=== PATIENT | female | born 1930 | race Caucasian/White ===

== ENCOUNTER 2016-10-09 09:12 | Emergency (ER) | payer OTHER ==
[~2016-10-09] VITALS: Ht 160 cm; Wt 54.4 kg
[2016-10-09 09:19] VITALS: BP_SYST 102; BP_SYST 110; BP_DIAS 44; BP_DIAS 45
[2016-10-09] MEDS ORDERED: QUETIAPINE FUMA50 MG ORAL (09:56)
[2016-10-09] MEDS ORDERED: TEMAZEPAM15 MG ORAL (09:56)
[2016-10-09] MEDS ORDERED: DONEPEZIL HCL5 M2 ORAL (09:56)
[2016-10-09] MEDS ORDERED: OMEPRAZOLE20 M2 ORAL (09:56)
[2016-10-09] MEDS ORDERED: LORAZEPAM1 MG ORAL (09:56)
[2016-10-09] MEDS ORDERED: ATORVASTATIN CA80 MG ORAL (09:56)
[2016-10-09] MEDS ORDERED: FERROUS SULFAT325 MG ORAL (09:56)
[2016-10-09] MEDS ORDERED: ACETAMINOP160 MG/54 ORAL (09:56)
[2016-10-09] MEDS ORDERED: CITALOPRAM HBR20 M1 ORAL (09:56)
[2016-10-09] MEDS ORDERED: ASPIR-LOW81 MG ORAL (09:56)
[2016-10-09] MEDS ORDERED: MILK OF MA400 MG/51 ORAL (09:56)
[2016-10-09 10:38] LABS: EOSINOPHILS % (AUTO) 2.2 % (0.0-3.0); LYMPHOCYTES % (AUTO) 24.9 % (20.0-45.0); MEAN CORPUSCULAR HEMOGLOBIN 31.8 PG (27.0-31.0); MEAN CORPUSCULAR HGB CONC 32.1 G/DL (32.0-36.0); MEAN CORPUSCULAR VOLUME 99 FL (80-99); MEAN PLATELET VOLUME 6.3 FL (6.5-10.1); MONOCYTES % (AUTO) 9.1 % (1.0-10.0); NEUTROPHILS % (AUTO) 62.9 % (45.0-75.0); PLATELET COUNT 337 K/UL (150-450); RED BLOOD COUNT 3.73 M/UL (4.20-5.40); RED CELL DISTRIBUTION WIDTH 12.9 % (11.6-14.8); WHITE BLOOD COUNT 5.1 K/UL (4.8-10.8)
--- NOTE | 2016-10-09 10:45 | Emergency Room Report ---
History of Present Illness General Chief Complaint: General Complaint Source: Patient, Medical Record Present Illness HPI [id number] BIBEMS from [facility] with uncontrolled twitching episodes this morning. Patient states happened previously, lasted a few hours and stopped. Improves when she's warm, sleeping. Denies known issues with K, Ca. Deneis fever/chills, chest pain, SOB, abd pain, urinary complaints. Denies intention tremor History of dementia. Allergies: Coded Allergies: No Known Allergies (Unverified , 10/09/16) Patient History Limited by: age, medical condition Past Medical History: see triage record, old chart reviewed Past Surgical History: none Pertinent Family History: none Social History: Denies: alcohol use, drug use, smoking Now: No Immunizations: UTD Reviewed Nursing Documentation: PMH: Agreed, PSxH: Agreed Nursing Documentation-PMH Past Medical History: No History, Except For Review of Systems All Other Systems: negative except mentioned in HPI Physical Exam Vital Signs Date Time Temp Pulse Resp B/P Pulse Ox O2 Delivery O2 Flow Rate FiO2 10/09/16 09:03 98.4 62 18 102/44 92 Room Air Sp02 EP Interpretation: reviewed, normal General Appearance: normal inspection, well appearing, no apparent distress, alert, GCS 15, non-toxic, other - Very well appearing, pleasant elderly lady sitting in stretcher. Noted to not be twitching when asleep Head: normocephalic, atraumatic Eyes: bilateral eye EOMI, bilateral eye PERRL ENT: normal ENT inspection, hearing grossly normal, normal voice Neck: normal inspection, full range of motion, supple, no bony tend Respiratory: normal inspection, lungs clear, normal breath sounds, no respiratory distress, no retraction, no wheezing Cardiovascular #1: regular rate, rhythm, no edema Gastrointestinal: normal inspection, normal bowel sounds, non tender, soft, no guarding, no hernia Genitourinary: no CVA tenderness Musculoskeletal: normal inspection, back normal, normal range of motion, Tuan' s Sign negative Neurologic: normal inspection, alert, responsive, home health care case manager III-XII nml as tested, motor strength/tone normal, speech normal, other - No intention tremor. Intermitten spasm of left lower eyelid, upper left chest Psychiatric: normal inspection, judgement/insight normal, mood/affect normal Skin: normal inspection, normal color, no rash Lymphatic: normal inspection Medical Decision Making Diagnostic Impression: Primary Impression: Muscle twitch Additional Impression: Eye muscle twitches ER Course - VSS. Afebrile. No signs of systemic or septic illness - ECG is NSR. Intervals are normal. No peaked twaves - Labs: H&H stable. K and Ca are normal. Mild MARY. - Twitch only happens when awake. ?Psychosomatic. ?Dementia-related. No Parkinsons tremor - Needs PMD followup for outpatient Neuro referral as needed DC back to [facility] Last Vital Signs Date Time Temp Pulse Resp B/P Pulse Ox O2 Delivery O2 Flow Rate FiO2 10/09/16 09:19 98.4 63 18 110/45 97 Room Air Status: improved Disposition: ASSISTED LIVING Referrals: LIAM,REFERRING (PCP) RIVKA ADAME M.D. Oct 09, 2016 10:45
[2016-10-09 11:02] LABS: ALANINE AMINOTRANSFERASE 22 U/L (3-33); ALBUMIN/GLOBULIN RATIO 1.3 (1.0-2.7); ANION GAP 14 (5-15); ASPARTATE AMINO TRANSFERASE 22 U/L (5-40); CALCIUM 8.6 mg/dL (8.6-10.2); CARBON DIOXIDE 26 mEQ/L (20-30); CHLORIDE 103 mEQ/L (98-107); HEMOLYSIS 4; POTASSIUM 4.2 mEQ/L (3.4-4.9); SODIUM 143 mEQ/L (135-145); TOTAL PROTEIN 6.1 g/dL (6.6-8.7)
[2016-10-09 11:26] VITALS: BP 108/88
[2016-10-09 12:30] VITALS: BP 127/55
--- NOTE | 2016-10-11 19:12 | Cardiology Report ---
APPROVED REPORT EKG Measurement Heart [id number] Normal sinus rhythm Left axis deviation Abnormal ECG
== END 2016-10-09 13:00 | disposition home or self-care (01) ==
LOC: EDBD 09:12 → EMR 09:50
DX: R25.3 Fasciculation (principal); F03.90 Unspecified dementia, unspecified severity, without behavioral disturbance, psychotic disturbance, mood disturbance, and anxiety
CPT/HCPCS: 36415; 80053; 85025; 93005; 99283